=== PATIENT | male | born 1995 | race Caucasian/White ===

== ENCOUNTER 2016-07-20 15:18 | Emergency (ER) | payer BC ==
[~2016-07-20] VITALS: Ht 182.9 cm; Wt 70.5 kg
[2016-07-20 15:20] VITALS: TEMP 99.3
[2016-07-20 16:30] VITALS: BP 129/91; PULSE 90
== END 2016-07-20 16:30 | disposition home or self-care (01) ==
LOC: COL.ER 15:18
DX: S06.0X1A Concussion with loss of consciousness of 30 minutes or less, initial encounter (principal); S02.2XXA Fracture of nasal bones, initial encounter for closed fracture; V80.018A Animal-rider injured by fall from or being thrown from other animal in noncollision accident, initial encounter; Y93.59 Activity, other involving other sports and athletics played individually; Y92.39 Other specified sports and athletic area as the place of occurrence of the external cause; R40.2362 Coma scale, best motor response, obeys commands, at arrival to emergency department; R40.2142 Coma scale, eyes open, spontaneous, at arrival to emergency department; R40.2252 Coma scale, best verbal response, oriented, at arrival to emergency department